=== PATIENT | female | born 1945 | race American Indian/Alaskan Native ===

== ENCOUNTER 2018-07-10 08:24 | Outpatient (CLI) | payer MEDICARE ==
--- NOTE | 2018-07-10 12:49 | Mammography Report ---
BILATERAL DIGITAL SCREENING MAMMOGRAM WITH CAD: 07/10/18 08:24:00 CLINICAL: Routine screening.Breast cancer survivor status post right partial mastectomy with radiation therapy in [id number]. Status post left reduction mammoplasty. COMPARISON:04/05/11 and 05/18/11 mammograms. More recent [facility] mammograms are not available. FINDINGS: The breasts are mostly fatty with a few bilateral scattered fibroglandular densities. Minimal right postsurgical scar. A right upper outer biopsy clip. No mass, suspicious architectural distortion or suspicious calcifications. IMPRESSION: No mammographic evidence of malignancy. BI-RADS CATEGORY: 2 -- Benign RECOMMENDATION: Routine mammographic screening in one year. We will attempt to obtain [facility] mammograms or comparison. COMMENT: Patient follow-up letters are generated via our [employer] application.
== END 2018-07-10 08:25 | disposition home or self-care (01) ==
LOC: MAMMO 08:24
PROVIDERS: ATTEND Internal Medicine
DX: Z12.31 Encounter for screening mammogram for malignant neoplasm of breast (principal)
CPT/HCPCS: 77067

== ENCOUNTER 2019-07-26 12:00 | Emergency (ER) | payer SELFPAY ==
--- NOTE | 2019-07-26 12:11 | Event Note ---
ED Screening Note Date of service: 07/26/19 Time: 12:07 ED Screening Note: Nausea and vomiting started last week. Pain to left lower back. Pain 07/10. Took bengay. No abdominal or fever or chills. No urinary symptoms. Reports some shortness of breath on exertion VSS, Afeb This initial assessment/diagnostic orders/clinical plan/treatment(s) is/are subject to change based on patients health status, clinical progression and re- assessment by fellow clinical providers in the ED. Further treatment and workup at subsequent clinical providers discretion. Patient/guardian urged not to elope from the ED as their condition may be serious if not clinically assessed and managed. Initial orders include: labs inc urine, EKG,CXR
[2019-07-26] MEDS ORDERED: SODIUM CHLORIDE 0.9% 1000 ML 1,000 ML IV ONE (12:42)
[2019-07-26] MEDS ORDERED: KETOROLAC 30 MG/1 ML INJ IV ONE (12:43)
--- NOTE | 2019-07-26 12:48 | Emergency Department Report ---
ED General Adult HPI - General Chief complaint: Dyspnea/Respdistress Stated complaint: SHORT OF BREATH Time Seen by Provider: 07/26/19 12:03 Source: patient, family Mode of arrival: Wheelchair Limitations: No Limitations - History of Present Illness Initial comments: This is a very pleasant 73-year-old lady who presents with recurrent left flank pain. The pain does appear to be in the upper aspect of the left flank. It began 2 weeks ago. It resolved and then recurred yesterday. Since yesterday it has been somewhat constant. It does seem to change with a deep inspiration but there really is no associated shortness of breath nor cough. The pain does appear to be in the flank and not the posterior chest. Does not radiate. There is associated nausea. Patient does state she has a history of kidney stones. She states that she "hurt all over" with kidney stones otherwise she does not recall how the prior episodes of renal colic were like. She denies fever or chills. She denies any other intercurrent symptoms. -: Gradual, week(s) Location: back, left (flank) Quality: aching Consistency: constant Improves with: none Worsens with: none Associated Symptoms: denies other symptoms, nausea/vomiting Treatments Prior to Arrival: none - Related Data Previous Rx's Medication Instructions Recorded Last Taken Type HYDROcodone/APAP 5-325 [[place] 1 each PO Q6HR PRN #7 tablet 07/26/19 Unknown Rx 5/325] Allergies Allergy/AdvReac Type Severity Reaction Status Date / Time No Known Allergies Allergy Verified 07/26/19 12:09 ED Review of Systems ROS: Stated complaint: SHORT OF BREATH Other details as noted in HPI Constitutional: denies: chills, fever Eyes: denies: eye pain, eye discharge, vision change ENT: denies: ear pain, throat pain Respiratory: denies: cough, shortness of breath, wheezing Cardiovascular: denies: chest pain, palpitations Endocrine: no symptoms reported Gastrointestinal: denies: abdominal pain, nausea, vomiting, diarrhea Genitourinary: denies: urgency, dysuria, discharge Musculoskeletal: denies: back pain, joint swelling, arthralgia Skin: denies: rash, lesions Neurological: denies: headache, weakness, paresthesias Psychiatric: denies: anxiety, depression Hematological/Lymphatic: denies: easy bleeding, easy bruising ED Past Medical Hx - Past Medical History Previous Medical History?: Yes Hx Kidney Stones: Yes - Social History Smoking Status: Never Smoker Substance Use Type: None - Medications Home Medications: Home Medications Medication Instructions Recorded Confirmed Last Taken Type HYDROcodone/APAP 5-325 [[place] 1 each PO Q6HR PRN #7 tablet 07/26/19 Unknown Rx 5/325] ED Physical Exam - General Limitations: No Limitations General appearance: alert, in no apparent distress - Head Head exam: Present: atraumatic, normocephalic - Eye Eye exam: Present: normal appearance. Absent: scleral icterus - ENT ENT exam: Present: mucous membranes moist - Neck Neck exam: Present: normal inspection. Absent: tenderness, meningismus - Respiratory Respiratory exam: Present: normal lung sounds bilaterally. Absent: respiratory distress - Cardiovascular Cardiovascular Exam: Present: regular rate, normal rhythm. Absent: systolic murmur, diastolic murmur, rubs, gallop - GI/Abdominal GI/Abdominal exam: Present: soft, normal bowel sounds. Absent: distended, tenderness, guarding, rebound, rigid - Extremities Exam Extremities exam: Present: normal inspection - Back Exam Back exam: Present: normal inspection, CVA tenderness (L). Absent: CVA tenderness (R), muscle spasm, paraspinal tenderness, vertebral tenderness - Neurological Exam Neurological exam: Present: alert, oriented X3, CN II-XII intact. Absent: motor sensory deficit - Psychiatric Psychiatric exam: Present: normal affect, normal mood - Skin Skin exam: Present: warm, dry, intact, normal color. Absent: rash ED Course Vital Signs 07/26/19 07/26/19 07/26/19 12:06 12:37 12:38 Temperature 98.1 F Pulse Rate 101 H Respiratory 18 24 Rate Blood Pressure 136/76 Blood Pressure 135/71 [Left] O2 Sat by Pulse 96 100 Oximetry ED Medical Decision Making - Lab Data Result diagrams: 07/26/19 12:48 07/26/19 12:48 Laboratory Results - last 24 hr 07/26/19 07/26/19 07/26/19 12:48 12:48 12:48 WBC 8.8 RBC 4.34 Hgb 12.8 Hct 38.4 MCV 88 MCH 29 MCHC 33 RDW 15.6 H Plt Count 243 Lymph % (Auto) 21.0 [place] % (Auto) 12.7 H Eos % (Auto) 0.4 Baso % (Auto) 1.0 Lymph # 1.8 [place] # 1.1 H Eos # 0.0 Baso # 0.1 Seg Neutrophils % 64.9 Seg Neutrophils # 5.7 PT 13.2 INR 1.01 APTT 26.0 Sodium Potassium Chloride Carbon Dioxide Anion Gap BUN Creatinine Estimated GFR BUN/Creatinine Ratio Glucose Calcium Total Bilirubin Direct Bilirubin Indirect Bilirubin AST ALT Alkaline Phosphatase Troponin T < 0.010 Total Protein Albumin Albumin/Globulin Ratio 07/26/19 12:48 WBC RBC Hgb Hct MCV MCH MCHC RDW Plt Count Lymph % (Auto) [place] % (Auto) Eos % (Auto) Baso % (Auto) Lymph # [place] # Eos # Baso # Seg Neutrophils % Seg Neutrophils # PT INR APTT Sodium 141 Potassium 3.7 Chloride 102.9 Carbon Dioxide 23 Anion Gap 19 BUN 18 H Creatinine 1.5 H Estimated GFR 41 BUN/Creatinine Ratio 12 Glucose 104 H Calcium 9.4 Total Bilirubin 0.70 Direct Bilirubin < 0.2 Indirect Bilirubin 0.5 AST 19 ALT 15 Alkaline Phosphatase 91 Troponin T Total Protein 7.1 Albumin 4.1 Albumin/Globulin Ratio 1.4 Laboratory Results - last 24 hr 07/26/19 07/26/19 07/26/19 12:48 12:48 12:48 WBC 8.8 RBC 4.34 Hgb 12.8 Hct 38.4 MCV 88 MCH 29 MCHC 33 RDW 15.6 H Plt Count 243 Lymph % (Auto) 21.0 [place] % (Auto) 12.7 H Eos % (Auto) 0.4 Baso % (Auto) 1.0 Lymph # 1.8 [place] # 1.1 H Eos # 0.0 Baso # 0.1 Seg Neutrophils % 64.9 Seg Neutrophils # 5.7 PT 13.2 INR 1.01 APTT 26.0 Sodium Potassium Chloride Carbon Dioxide Anion Gap BUN Creatinine Estimated GFR BUN/Creatinine Ratio Glucose Calcium Total Bilirubin Direct Bilirubin Indirect Bilirubin AST ALT Alkaline Phosphatase Troponin T < 0.010 Total Protein Albumin Albumin/Globulin Ratio 07/26/19 12:48 WBC RBC Hgb Hct MCV MCH MCHC RDW Plt Count Lymph % (Auto) [place] % (Auto) Eos % (Auto) Baso % (Auto) Lymph # [place] # Eos # Baso # Seg Neutrophils % Seg Neutrophils # PT INR APTT Sodium 141 Potassium 3.7 Chloride 102.9 Carbon Dioxide 23 Anion Gap 19 BUN 18 H Creatinine 1.5 H Estimated GFR 41 BUN/Creatinine Ratio 12 Glucose 104 H Calcium 9.4 Total Bilirubin 0.70 Direct Bilirubin < 0.2 Indirect Bilirubin 0.5 AST 19 ALT 15 Alkaline Phosphatase 91 Troponin T Total Protein 7.1 Albumin 4.1 Albumin/Globulin Ratio 1.4 Laboratory Results - last 24 hr 07/26/19 07/26/19 07/26/19 12:48 12:48 12:48 WBC 8.8 RBC 4.34 Hgb 12.8 Hct 38.4 MCV 88 MCH 29 MCHC 33 RDW 15.6 H Plt Count 243 Lymph % (Auto) 21.0 [place] % (Auto) 12.7 H Eos % (Auto) 0.4 Baso % (Auto) 1.0 Lymph # 1.8 [place] # 1.1 H Eos # 0.0 Baso # 0.1 Seg Neutrophils % 64.9 Seg Neutrophils # 5.7 PT 13.2 INR 1.01 APTT 26.0 Sodium Potassium Chloride Carbon Dioxide Anion Gap BUN Creatinine Estimated GFR BUN/Creatinine Ratio Glucose Calcium Total Bilirubin Direct Bilirubin Indirect Bilirubin AST ALT Alkaline Phosphatase Troponin T < 0.010 Total Protein Albumin Albumin/Globulin Ratio 07/26/19 12:48 WBC RBC Hgb Hct MCV MCH MCHC RDW Plt Count Lymph % (Auto) [place] % (Auto) Eos % (Auto) Baso % (Auto) Lymph # [place] # Eos # Baso # Seg Neutrophils % Seg Neutrophils # PT INR APTT Sodium 141 Potassium 3.7 Chloride 102.9 Carbon Dioxide 23 Anion Gap 19 BUN 18 H Creatinine 1.5 H Estimated GFR 41 BUN/Creatinine Ratio 12 Glucose 104 H Calcium 9.4 Total Bilirubin 0.70 Direct Bilirubin < 0.2 Indirect Bilirubin 0.5 AST 19 ALT 15 Alkaline Phosphatase 91 Troponin T Total Protein 7.1 Albumin 4.1 Albumin/Globulin Ratio 1.4 Laboratory Results - last 24 hr 07/26/19 07/26/19 07/26/19 12:48 12:48 12:48 WBC 8.8 RBC 4.34 Hgb 12.8 Hct 38.4 MCV 88 MCH 29 MCHC 33 RDW 15.6 H Plt Count 243 Lymph % (Auto) 21.0 [place] % (Auto) 12.7 H Eos % (Auto) 0.4 Baso % (Auto) 1.0 Lymph # 1.8 [place] # 1.1 H Eos # 0.0 Baso # 0.1 Seg Neutrophils % 64.9 Seg Neutrophils # 5.7 PT 13.2 INR 1.01 APTT 26.0 Sodium Potassium Chloride Carbon Dioxide Anion Gap BUN Creatinine Estimated GFR BUN/Creatinine Ratio Glucose Calcium Total Bilirubin Direct Bilirubin Indirect Bilirubin AST ALT Alkaline Phosphatase Troponin T < 0.010 Total Protein Albumin Albumin/Globulin Ratio Urine Color Urine Turbidity Urine pH Ur Specific [place] Urine Protein Urine Glucose (UA) Urine Ketones Urine Blood Urine Nitrite Urine Bilirubin Urine Urobilinogen Ur Leukocyte Esterase Urine WBC (Auto) Urine RBC (Auto) U Epithel Cells (Auto) Urine Mucus 07/26/19 07/26/19 12:48 13:34 WBC RBC Hgb Hct MCV MCH MCHC RDW Plt Count Lymph % (Auto) [place] % (Auto) Eos % (Auto) Baso % (Auto) Lymph # [place] # Eos # Baso # Seg Neutrophils % Seg Neutrophils # PT INR APTT Sodium 141 Potassium 3.7 Chloride 102.9 Carbon Dioxide 23 Anion Gap 19 BUN 18 H Creatinine 1.5 H Estimated GFR 41 BUN/Creatinine Ratio 12 Glucose 104 H Calcium 9.4 Total Bilirubin 0.70 Direct Bilirubin < 0.2 Indirect Bilirubin 0.5 AST 19 ALT 15 Alkaline Phosphatase 91 Troponin T Total Protein 7.1 Albumin 4.1 Albumin/Globulin Ratio 1.4 Urine Color Yellow Urine Turbidity Clear Urine pH 6.0 Ur Specific [place] 1.015 Urine Protein <15 mg/dl Urine Glucose (UA) Neg Urine Ketones 20 Urine Blood Sm Urine Nitrite Neg Urine Bilirubin Neg Urine Urobilinogen < 2.0 Ur Leukocyte Esterase Neg Urine WBC (Auto) 2.0 Urine RBC (Auto) 2.0 U Epithel Cells (Auto) < 1.0 Urine Mucus Few - Radiology Data Radiology results: report reviewed, image reviewed IMPRESSION: 1. 6 mm left UVJ stone with moderate left-sided hydronephrosis. 2. Additional bilateral nonobstructive nephrolithiasis. 3. Additional incidental findings as above. Critical care attestation.: If time is entered above; I have spent that time in minutes in the direct care of this critically ill patient, excluding procedure time. ED Disposition Clinical Impression: Renal colic on left side, Obstructive uropathy, Bilateral nephrolithiasis, C hronic renal insufficiency, stage I Disposition: TO HOME OR SELFCARE Is pt being admited?: No Does the pt Need Aspirin: No Condition: Stable Instructions: Kidney Stones (ED) Additional Instructions: Further care and evaluation with a urologist (kidney stones specialist) is recommended. Return as needed any acute pain fever chills vomiting. Prescriptions: HYDROcodone/APAP 5-325 [[place] 5/325] 1 each PO Q6HR PRN #7 tablet PRN Reason: Pain Referrals: [facility] [Provider Group] - 3-5 Days Time of Disposition: 14:19
--- NOTE | 2019-07-26 12:48 | XRay Report ---
CHEST 1 VIEW INDICATION: Dyspnea. COMPARISON: None FINDINGS: Support devices: None. Heart: Within normal limits. Lungs/Pleura: No acute air space or interstitial disease. Additional findings: None. IMPRESSION: 1. No acute findings. Signer Name: Gustabo Hernandes MD Signed: 07/26/2019 12:43 PM Workstation Name: [id number]
[2019-07-26 13:04] LABS: Basophils # (Auto) 0.1 K/mm3 (0.0-0.1); Eosinophils % (Auto) 0.4 % (0.0-4.3); Hematocrit 38.4 % (30.3-42.9); Hemoglobin 12.8 gm/dl (10.1-14.3); Lymphocytes # (Auto) 1.8 K/mm3 (1.2-5.4); Mean Corpuscular HGB Conc 33 % (30-34); Mean Corpuscular Volume 88 fl (79-97); Monocytes # (Auto) 1.1 K/mm3 (0.0-0.8); Monocytes % (Auto) 12.7 % (0.0-7.3); Platelet Count 243 K/mm3 (140-440); Red Blood Count 4.34 M/mm3 (3.65-5.03); Red Cell Distribution Width 15.6 % (13.2-15.2)
[2019-07-26 13:15] LABS: INR 1.01 (0.87-1.13)
[2019-07-26 13:39] LABS: Alanine Aminotransferase 15 units/L (7-56); Albumin 4.1 g/dL (3.9-5); BUN/Creatinine Ratio 12; Blood Urea Nitrogen 18 mg/dL (7-17); Calcium 9.4 mg/dL (8.4-10.2); Hemolysis Index 5
[2019-07-26 13:41] LABS: Bilirubin,Direct < 0.2 mg/dL (0-0.2)
--- NOTE | 2019-07-26 14:08 | Cat Scan Report ---
CT ABDOMEN AND PELVIS WITHOUT CONTRAST HISTORY: l flank pain. COMPARISON: None. TECHNIQUE: CT images of the abdomen and pelvis were obtained without administration of intravenous co ntrast. All CT scans at this location are performed using CT dose reduction for ALARA by means of au tomated exposure control. FINDINGS: Lungs/bones: The lung bases are clear. There are degenerative changes in the spine and pelvis with n o acute osseous abnormality. Abdomen/pelvis: There is a 6 mm stone near the left UVJ with moderate left-sided hydronephrosis. Add itional nonobstructive calyceal calculi are seen in the lower poles of each kidney largest on the rig ht measuring 8 mm. There is also a simple cyst arising from the mid to lower pole the right kidney. The gallbladder surgically absent. The liver, spleen, pancreas, adrenals, and proximal GI tract appea r unremarkable except for a small hiatal hernia. Urinary bladder is unremarkable. Uterus is surgically absent. No pelvic free fluid. There is severe c olonic diverticulosis with no acute inflammatory change identified. The appendix and terminal ileum a ppear normal. IMPRESSION: 1. 6 mm left UVJ stone with moderate left-sided hydronephrosis. 2. Additional bilateral nonobstructive nephrolithiasis. 3. Additional incidental findings as above. Signer Name: Gustabo Hernandes MD Signed: 07/26/2019 2:04 PM Workstation Name: [id number]
[2019-07-26 14:31] LABS: Bilirubin,Urine NEG (Negative); Blood,Urine SM (Negative); Color,Urine Yellow (Yellow); Mucus,Urine FEW /HPF; Protein,Urine <15 mg/dL mg/dL (Negative); Urobilinogen,Urine < 2.0 mg/dL (<2.0)
[2019-07-26 15:10] VITALS: BP 141/71
== END 2019-07-26 15:22 | disposition home or self-care (01) ==
LOC: ED 12:00
DX: N18.1 Chronic kidney disease, stage 1 (principal); N20.0 Calculus of kidney; N13.9 Obstructive and reflux uropathy, unspecified; R11.2 Nausea with vomiting, unspecified
CPT/HCPCS: 36415; 71045; 74176; 80048; 80076; 81001; 84484; 85025; 85610; 85730; 93005; 93010; 96361; 96374; 99284; J1885; J7030

== ENCOUNTER 2019-08-14 06:12 | Observation (INO) | payer MEDICARE ==
[2019-08-14 07:08] LABS: Basophils # (Auto) 0.1 K/mm3 (0.0-0.1); Basophils % (Auto) 1.6 % (0.0-1.8); Eosinophils # (Auto) 0.1 K/mm3 (0.0-0.4); Hematocrit 40.3 % (30.3-42.9); Hemoglobin 13.3 gm/dl (10.1-14.3); Lymphocytes # (Auto) 2.4 K/mm3 (1.2-5.4); Mean Corpuscular HGB Conc 33 % (30-34); Mean Corpuscular Volume 89 fl (79-97); Monocytes # (Auto) 0.5 K/mm3 (0.0-0.8); Monocytes % (Auto) 9.9 % (0.0-7.3); Platelet Count 350 K/mm3 (140-440); Red Blood Count 4.55 M/mm3 (3.65-5.03)
[2019-08-14 07:20] LABS: BUN/Creatinine Ratio 16; Blood Urea Nitrogen 11 mg/dL (7-17); Calcium 9.6 mg/dL (8.4-10.2); Hemolysis Index 7
[2019-08-14] MEDS ORDERED: SODIUM CHLORIDE 0.9% 500 ML 500 ML IV ONE (07:30)
[2019-08-14] MEDS ORDERED: ONDANSETRON 4 MG/2 ML INJ IV ONE (07:30)
[2019-08-14] MEDS ORDERED: KETOROLAC 30 MG/1 ML INJ IV ONE (07:30)
[2019-08-14] MEDS ORDERED: HYDROmorphone 1 MG/1 ML INJ IV ONE (07:30)
[2019-08-14] MEDS ORDERED: POTASSIUM CHLORIDE ER 20 MEQ TAB PO ONE (07:30)
--- NOTE | 2019-08-14 07:40 | Emergency Department Report ---
ED Abdominal Pain HPI - General Chief Complaint: Abdominal Pain Stated Complaint: ABD PAIN Time Seen by Provider: 08/14/19 06:55 Source: patient Mode of arrival: Ambulatory Limitations: No Limitations - History of Present Illness Initial Comments: 73-year-old female with a past medical history of breast cancer currently in remission, hypertension, and previous hysterectomy presents to the hospital complaining of left lower quadrant abdominal pain and left flank pain 3 weeks. Patient was seen here on July 26 for the same pain and was diagnosed with left 6mm UVJ Stone with moderate hydronephrosis. Patient also had bilateral nephrolithiasis. Patient was discharged on hydrocodone 7 tablets. She follow- up with Dr. Godinez was used and was prescribed a 10 day supply of Flomax on August 04. Patient has taken the medication as prescribed and continues to have pain that is intermittent and currently rated 10/10 in intensity. No aggravating or alleviating factors reported. Positive nausea without vomiting, dysuria, hematuria or fever reported. Dr Godinez wanted to schedule procedural intervention however, her insurance did not approve the procedure. She was informed to return to ER due to continued pain. - Related Data Previous Rx's Medication Instructions Recorded Last Taken Type HYDROcodone/APAP 5-325 [[place] 1 each PO Q6HR PRN #7 tablet 07/26/19 Unknown Rx 5/325] Allergies Allergy/AdvReac Type Severity Reaction Status Date / Time No Known Allergies Allergy Verified 07/26/19 12:09 ED Review of Systems ROS: Stated complaint: ABD PAIN Other details as noted in HPI Comment: All other systems reviewed and negative ED Past Medical Hx - Past Medical History Previous Medical History?: Yes Hx Hypertension: Yes Hx of Cancer: Yes (Breast) Hx Kidney Stones: Yes - Surgical History Past Surgical History?: Yes Additional Surgical History: breast. Hysterectomy - Social History Smoking Status: Former Smoker Substance Use Type: None - Medications Home Medications: Home Medications Medication Instructions Recorded Confirmed Last Taken Type HYDROcodone/APAP 5-325 [[place] 1 each PO Q6HR PRN #7 tablet 07/26/19 Unknown Rx 5/325] ED Physical Exam - General Limitations: No Limitations - Other Other exam information: General: No acute distress Head: Atraumatic Eyes: normal appearance ENT: Moist mucous membranes Neck: Normal appearance, no midline tenderness Chest: Clear to auscultation bilaterally CV: Regular rate and rhythm Abdomen: Soft, normal bowel sounds, mild left lower quadrant tenderness, nondistended, no rebound or guarding Back: Normal inspection, mild left flank pain on palpation Extremity: Normal inspection infection, full range of motion Neuro: Alert O x 3, no facial asymmetry, speech clear, no gross motor sensory d eficit Psych: Appropriate behavior Skin: No rash ED Course Vital Signs 08/14/19 08/14/19 08/14/19 06:23 08:25 08:26 Temperature 98.3 F Pulse Rate 115 H Respiratory 20 20 20 Rate Blood Pressure 150/84 O2 Sat by Pulse 97 Oximetry - Consultations Consultation #1: 08/14/19 08:35 case d/w Dr Godinez, urology, will plan to place stent today if OR available. ED Medical Decision Making - Lab Data Result diagrams: 08/14/19 06:55 08/14/19 06:55 Lab Results 08/14/19 08/14/19 Range/Units 06:55 06:55 WBC 4.7 (4.5-11.0) K/mm3 RBC 4.55 (3.65-5.03) M/mm3 Hgb 13.3 (10.1-14.3) gm/dl Hct 40.3 (30.3-42.9) % MCV 89 (79-97) fl MCH 29 (28-32) pg MCHC 33 (30-34) % RDW 16.0 H (13.2-15.2) % Plt Count 350 (140-440) K/mm3 Lymph % (Auto) 50.0 H (13.4-35.0) % [place] % (Auto) 9.9 H (0.0-7.3) % Eos % (Auto) 2.0 (0.0-4.3) % Baso % (Auto) 1.6 (0.0-1.8) % Lymph # 2.4 (1.2-5.4) K/mm3 [place] # 0.5 (0.0-0.8) K/mm3 Eos # 0.1 (0.0-0.4) K/mm3 Baso # 0.1 (0.0-0.1) K/mm3 Seg Neutrophils % 36.5 L (40.0-70.0) % Seg Neutrophils # 1.7 L (1.8-7.7) K/mm3 Sodium 143 (137-145) mmol/L Potassium 3.3 L (3.6-5.0) mmol/L Chloride 105.1 (98-107) mmol/L Carbon Dioxide 25 (22-30) mmol/L Anion Gap 16 mmol/L BUN 11 (7-17) mg/dL Creatinine 0.7 (0.7-1.2) mg/dL Estimated GFR > 60 ml/min BUN/Creatinine Ratio 16 % Glucose 106 H (65-100) mg/dL Calcium 9.6 (8.4-10.2) mg/dL - Radiology Data Radiology results: report reviewed CT abdomen pelvis wo con INDICATION / CLINICAL INFORMATION: abd pain recent L sided kidney stone. TECHNIQUE: Axial CT imaging of abdomen and pelvis was obtained without contrast. Coronal and sagittal reformatted imaging obtained and reviewed. All CT scans at this location are performed using CT dose reduction for ALARA by means of automated exposure control. COMPARISON: 07/26/2019 CT FINDINGS: The previously noted 6 mm calculus in the distal left ureter appears to have passed. However there is a new calculus in the proximal left ureter at the UPJ, measuring 7 x 3 mm. There is mild hydronephrosis. The degree of hydronephrosis has significantly improved compared with the last CT scan and passage of the more distal ureteral calculus. There remains a single stone in the inferior calyx of the left kidney. Multiple calculi are again noted in the lower pole calyx of the right kidney. Bilateral renal cysts are noted. Liver, spleen, pancreas, and adrenal glands appear grossly unremarkable. Cholecystectomy. CT pelvis demonstrates normal appearance of the appendix. There is marked sigmoid diverticulosis without evidence of diverticulitis. No pelvic mass or free fluid is noted. Visualized lung bases are clear. No significant osseous abnormality other than mild degenerative change. IMPRESSION: 1. Previously noted 6 mm calculus in the distal left ureter is no longer present and presumably has been passed. 2. One of the previously seen left intrarenal calculi has now moved into the proximal left ureter and is causing mild hydronephrosis. This calculus measures 7 x 3 mm. Overall, the degree of hydronephrosis has significantly improved compared with the last CT of 07/26/2019. 3. Bilateral nephrolithiasis. 4. Marked sigmoid diverticulosis. - Medical Decision Making renal colic with continued pain and proximal obstruction case d/w urology plan to admit for intervention hospitalist informed - Differential Diagnosis renal colic, UTI, diverticulitis Critical Care Time: No Critical care attestation.: If time is entered above; I have spent that time in minutes in the direct care of this critically ill patient, excluding procedure time. ED Disposition Clinical Impression: Renal colic on left side, Ureteral stone with hydronephrosis Disposition: OP ADMIT IP TO THIS HOSP Is pt being admited?: Yes Condition: Stable Time of Disposition: 08:44 (Dr thompson/hospitalist)
--- NOTE | 2019-08-14 07:44 | Cat Scan Report ---
CT abdomen pelvis wo con INDICATION / CLINICAL INFORMATION: abd pain recent L sided kidney stone. TECHNIQUE: Axial CT imaging of abdomen and pelvis was obtained without contrast. Coronal and sagittal reformatte d imaging obtained and reviewed. All CT scans at this location are performed using CT dose reduction for ALARA by means of automated exposure control. COMPARISON: 07/26/2019 CT FINDINGS: The previously noted 6 mm calculus in the distal left ureter appears to have passed. However there is a new calculus in the proximal left ureter at the UPJ, measuring 7 x 3 mm. There is mild hydronephro sis. The degree of hydronephrosis has significantly improved compared with the last CT scan and passa ge of the more distal ureteral calculus. There remains a single stone in the inferior calyx of the le ft kidney. Multiple calculi are again noted in the lower pole calyx of the right kidney. Bilateral re nal cysts are noted. Liver, spleen, pancreas, and adrenal glands appear grossly unremarkable. Cholecystectomy. CT pelvis demonstrates normal appearance of the appendix. There is marked sigmoid diverticulosis with out evidence of diverticulitis. No pelvic mass or free fluid is noted. Visualized lung bases are clear. No significant osseous abnormality other than mild degenerative change. IMPRESSION: 1. Previously noted 6 mm calculus in the distal left ureter is no longer present and presumably has b een passed. 2. One of the previously seen left intrarenal calculi has now moved into the proximal left ureter and is causing mild hydronephrosis. This calculus measures 7 x 3 mm. Overall, the degree of hydronephros is has significantly improved compared with the last CT of 07/26/2019. 3. Bilateral nephrolithiasis. 4. Marked sigmoid diverticulosis. Signer Name: Beverly Gonzales MD Signed: 08/14/2019 7:40 AM Workstation Name: [id number]
[2019-08-14 09:44] LABS: Bilirubin,Urine NEG (Negative); Blood,Urine NEG (Negative); Color,Urine Yellow (Yellow); Mucus,Urine FEW /HPF; Protein,Urine <15 mg/dL mg/dL (Negative); Urobilinogen,Urine < 2.0 mg/dL (<2.0)
[2019-08-14] MEDS ORDERED: ONDANSETRON 4 MG/2 ML INJ IV PRN (10:02)
[2019-08-14] MEDS ORDERED: ALBUTEROL 2.5 MG/3 ML NEBU IH PRN (10:02)
[2019-08-14] MEDS ORDERED: NALOXONE 0.4 MG/1 ML INJ IV PRN (10:02)
[2019-08-14] MEDS ORDERED: ACETAMINOPHEN 325 MG TAB PO PRN (10:02)
--- NOTE | 2019-08-14 10:02 | History and Physical Report ---
History of Present Illness Date of examination: 08/14/19 Date of admission: 08/14/19 08:46 Medications and Allergies Allergies Allergy/AdvReac Type Severity Reaction Status Date / Time No Known Allergies Allergy Verified 07/26/19 12:09 Home Medications Medication Instructions Recorded Confirmed Last Taken Type amLODIPine [Norvasc] 10 mg PO DAILY 08/14/19 08/14/19 08/13/19 History Exam - Constitutional Vitals: Temp Pulse Resp BP Pulse Ox 98.1 F 81 16 134/63 99 08/14/19 07:45 08/14/19 07:45 08/14/19 08:56 08/14/19 07:45 08/14/19 07:45 Results - Labs CBC & Chem 7: 08/14/19 06:55 08/14/19 06:55 Labs: Laboratory Last Values WBC 4.7 K/mm3 (4.5-11.0) 08/14/19 06:55 RBC 4.55 M/mm3 (3.65-5.03) 08/14/19 06:55 Hgb 13.3 gm/dl (10.1-14.3) 08/14/19 06:55 Hct 40.3 % (30.3-42.9) 08/14/19 06:55 MCV 89 fl (79-97) 08/14/19 06:55 MCH 29 pg (28-32) 08/14/19 06:55 MCHC 33 % (30-34) 08/14/19 06:55 RDW 16.0 % (13.2-15.2) H 08/14/19 06:55 Plt Count 350 K/mm3 (140-440) 08/14/19 06:55 Lymph % (Auto) 50.0 % (13.4-35.0) H 08/14/19 06:55 [place] % (Auto) 9.9 % (0.0-7.3) H 08/14/19 06:55 Eos % (Auto) 2.0 % (0.0-4.3) 08/14/19 06:55 Baso % (Auto) 1.6 % (0.0-1.8) 08/14/19 06:55 Lymph # 2.4 K/mm3 (1.2-5.4) 08/14/19 06:55 [place] # 0.5 K/mm3 (0.0-0.8) 08/14/19 06:55 Eos # 0.1 K/mm3 (0.0-0.4) 08/14/19 06:55 Baso # 0.1 K/mm3 (0.0-0.1) 08/14/19 06:55 Seg Neutrophils % 36.5 % (40.0-70.0) L 08/14/19 06:55 Seg Neutrophils # 1.7 K/mm3 (1.8-7.7) L 08/14/19 06:55 Sodium 143 mmol/L (137-145) 08/14/19 06:55 Potassium 3.3 mmol/L (3.6-5.0) L 08/14/19 06:55 Chloride 105.1 mmol/L (98-107) 08/14/19 06:55 Carbon Dioxide 25 mmol/L (22-30) 08/14/19 06:55 Anion Gap 16 mmol/L 08/14/19 06:55 BUN 11 mg/dL (7-17) 08/14/19 06:55 Creatinine 0.7 mg/dL (0.7-1.2) 08/14/19 06:55 Estimated GFR > 60 ml/min 08/14/19 06:55 BUN/Creatinine Ratio 16 % 08/14/19 06:55 Glucose 106 mg/dL (65-100) H 08/14/19 06:55 Calcium 9.6 mg/dL (8.4-10.2) 08/14/19 06:55 Urine Color Yellow (Yellow) 08/14/19 09:33 Urine Turbidity Clear (Clear) 08/14/19 09:33 Urine pH 6.0 (5.0-7.0) 08/14/19 09:33 Ur Specific [place] 1.016 (1.003-1.030) 08/14/19 09:33 Urine Protein <15 mg/dl mg/dL (Negative) 08/14/19 09:33 Urine Glucose (UA) Neg mg/dL (Negative) 08/14/19 09:33 Urine Ketones Tr mg/dL (Negative) 08/14/19 09:33 Urine Blood Neg (Negative) 08/14/19 09:33 Urine Nitrite Neg (Negative) 08/14/19 09:33 Urine Bilirubin Neg (Negative) 08/14/19 09:33 Urine Urobilinogen < 2.0 mg/dL (<2.0) 08/14/19 09:33 Ur Leukocyte Esterase Neg (Negative) 08/14/19 09:33 Urine WBC (Auto) 2.0 /HPF (0.0-6.0) 08/14/19 09:33 Urine RBC (Auto) 1.0 /HPF (0.0-6.0) 08/14/19 09:33 U Epithel Cells (Auto) 1.0 /HPF (0-13.0) 08/14/19 09:33 Urine Mucus Few /HPF 08/14/19 09:33
--- NOTE | 2019-08-14 10:18 | Anesthesia Consultation ---
Anesthesia Consult and Med Hx Date of service: 08/14/19 - Airway Anesthetic Teeth Evaluation: Poor, Chipped (multiple chipped and broken teeth including top incisors) ROM Head & Neck: Adequate Mental/Hyoid Distance: Inadequate Mallampati Class: Class III Intubation Access Assessment: Possibly Difficult - Pulmonary Exam CTA: Yes - Cardiac Exam Cardiac Exam: RRR - Pre-Operative Health Status ASA Pre-Surgery Classification: ASA3 Proposed Anesthetic Plan: General - Pulmonary Hx Smoking: No Hx Respiratory Symptoms: No - Cardiovascular System Hx Hypertension: Yes Hx Heart Attack/AMI: No Hx Percutaneous Transluminal Coronary Angioplasty (PTCA): No - Central Nervous System Hx Neuromuscular Disorder: No (tremor noted which patient attributes to nerves) CVA: No - Gastrointestinal Hx Gastroesophageal Reflux Disease: No - Endocrine Hx Renal Disease: Yes (hydronephrosis, nephrolithiasis; normal renal function) Hx Liver Disease: No Hx Insulin Dependent Diabetes: No Hx Non-Insulin Dependent Diabetes: No Hx Thyroid Disease: No - Hematic Hx Anemia: No - Other Systems Hx Obesity: Yes - Additional Comments Anesthesia Medical History Comments: No hx anesthetic complications. Mild nausea today. Last episode vomiting 2 days ago.
[2019-08-14] MEDS ORDERED: FAMOTIDINE 20 MG/2 ML INJ IV ONE (10:19)
--- NOTE | 2019-08-14 10:19 | Anesthesia Day of Surgery ---
Anesthesia Day of Surgery - Day of Surgery Patient Examined: Yes Patient H&P Reviewed: Yes Patient is NPO: Yes
[2019-08-14] MEDS ORDERED: LIDOCAINE MPF (2%) 20 MG/1 ML VIAL 5 ML ONE (10:52)
[2019-08-14] MEDS ORDERED: PROPOFOL 200 MG/20 ML VIAL IV ONE (10:53)
[2019-08-14] MEDS ORDERED: HYDROmorphone 1 MG/1 ML INJ ONE (10:53)
[2019-08-14] MEDS ORDERED: LACTATED RINGERS 1,000 ML IV SCH (11:00)
[2019-08-14] MEDS ORDERED: ONDANSETRON 4 MG/2 ML INJ IV NR (11:00)
[2019-08-14] MEDS ORDERED: ceFAZolin/STERILE WATER 2 GM/20 ML SYRINGE IV NR (12:10)
[2019-08-14] MEDS ORDERED: WATER FOR IRRIG STERILE 2000 ML IR ONE (12:52)
[2019-08-14] MEDS ORDERED: ONDANSETRON 4 MG/2 ML INJ ONE (13:09)
[2019-08-14] MEDS: fentaNYL 100 MCG/2 ML INJ IV PRN ×2 (13:35→13:50)
--- NOTE | 2019-08-14 14:19 | History and Physical Report ---
History of Present Illness Date of admission: 08/14/19 08:46 Chief complaint: My side hurts History of present illness: 73 YO Female with HTN, BrCA, Nephrolithiasis, Obesity presents to ED for evaluation. Pt states that she has experienced pain in her left flank over the past 3 weeks. Pt reports that the pain was initially intermittent, but has become progressively more frequent over the past 1 week. Patient was seen and evaluated in ED on July 26 and discharged home with outpatient management. Patient reports worsening symptoms with outpatient management. Pt seen and evaluated by her Urologist and found to have failed outpatient therapy. Pt instructed to seek further care at [facility]. Pt seen and evaluated in ED and found to have Urinary Obstruction with Hydronephrosis. Urology consulted in ED. Pt admitted to RUBIN unit. Pt pending surgical intervention as per Urology team. PT a cknowledges Left flank pain. Pain is 10/10, constant. Pain is associated with nausea, and inability to tolerate oral diet. No prior admission for review. All listed medication reconciled at time of admission. Past History Past Surgical History: hysterectomy, Other (Breast surgery) Social history: . denies: smoking, alcohol abuse, prescription drug abuse Family history: hypertension Medications and Allergies Allergies Allergy/AdvReac Type Severity Reaction Status Date / Time No Known Allergies Allergy Verified 07/26/19 12:09 Home Medications Medication Instructions Recorded Confirmed Last Taken Type amLODIPine [Norvasc] 10 mg PO DAILY 08/14/19 08/14/19 08/13/19 History Active Meds: Active Medications Acetaminophen (Tylenol) 650 mg PO Q4H PRN PRN Reason: Pain MILD(1-3)/Fever >100.5/MARISCAL Albuterol (Proventil) 2.5 mg IH Q4HRT PRN PRN Reason: Shortness Of Breath Cefazolin Sodium (Ancef/Sterile Water 2 Gm/20 Ml) 2 gm IV PREOP NR Stop: 08/14/19 23:59 Famotidine (Pepcid) 10 mg IV BID NEVIN Fentanyl (Sublimaze) 50 mcg IV Q5MIN PRN PRN Reason: Pain , Severe (7-10) Stop: 08/14/19 23:59 Last Admin: 08/14/19 13:50 Dose: 50 mcg Documented by: Cefepime HCl (Cefepime/Ns 1 Gm/100 Ml) 1 gm in 100 mls @ 200 mls/hr IV Q8HR NEVIN; Protocol Lactated Ringer's (Lactated Ringers) 1,000 mls @ 100 mls/hr IV DIRECT NEVIN Last Admin: 08/14/19 10:50 Dose: 100 mls/hr Documented by: Morphine Sulfate (Morphine) 2 mg IV Q4H PRN PRN Reason: Pain, Moderate (4-6) Naloxone HCl (Naloxone) 0.1 mg IV Q2MIN PRN PRN Reason: Res Rate </= 8 or 02 SAT < 92% Ondansetron HCl (Zofran) 4 mg IV Q8H PRN PRN Reason: Nausea And Vomiting Ondansetron HCl (Zofran) 4 mg IV PREOP NR Stop: 08/14/19 23:59 Last Admin: 08/14/19 10:50 Dose: 4 mg Documented by: Sodium Chloride (Sodium Chloride Flush Syringe 10 Ml) 10 ml IV BID NEVIN Sodium Chloride (Sodium Chloride Flush Syringe 10 Ml) 10 ml IV PRN PRN PRN Reason: LINE FLUSH Review of Systems Constitutional: no weight loss, no weight gain, no fever, no chills Ears, nose, mouth and throat: no ear pain, no ear discharge, no nasal discharge Breasts: no change in shape, no swelling, no mass Cardiovascular: no chest pain, no orthopnea, no rapid/irregular heart beat, no edema, no syncope Gastrointestinal: nausea, no diarrhea, no constipation, no change in bowel habits, no coffee ground emesis Genitourinary Female: flank pain, no pelvic pain, no menorrhagia, no dysuria, no urinary frequency, no urgency Rectal: no pain, no incontinence, no bleeding Musculoskeletal: no neck stiffness, no neck pain, no shooting arm pain, no arm numbness/tingling, no low back pain, no shooting leg pain, no leg numbness/tingling Integumentary: no rash, no pruritis, no redness, no sores, no wounds Neurological: no paralysis, no weakness, no tingling, no seizures, no syncope Psychiatric: no memory loss, no change in sleep habits, no insomnia, no hypersomnia, no change in libido, no suicidal ideation Endocrine: no heat intolerance, no polyphagia, no excessive thirst, no polyuria, no excessive sweating, no flushing Hematologic/Lymphatic: no easy bruising, no easy bleeding, no lymphadenopathy Allergic/Immunologic: no urticaria, no wheezing, no persistent infections, no angioedema Exam - Constitutional Vitals: Temp Pulse Resp BP Pulse Ox 97.5 F L 70 12 132/68 98 08/14/19 13:11 08/14/19 14:00 08/14/19 14:00 08/14/19 14:00 08/14/19 14:00 General appearance: Present: mild distress - EENT Eyes: Present: PERRL ENT: hearing intact, clear oral mucosa - Neck Neck: Present: supple, normal ROM - Respiratory Respiratory effort: normal Respiratory: bilateral: CTA - Cardiovascular Heart Sounds: Present: S1 & S2. Absent: rub, click - Extremities Extremities: pulses symmetrical, No edema Peripheral Pulses: within normal limits - Abdominal General gastrointestinal: Present: soft, non-tender, non-distended, normal bowel sounds Female genitourinary: Present: normal - Integumentary Integumentary: Present: clear, warm, dry - Musculoskeletal Musculoskeletal: gait normal, strength equal bilaterally - Psychiatric Psychiatric: appropriate mood/affect, intact judgment & insight - Neurologic Neurologic: CNII-XII intact, moves all extremities Results - Labs CBC & Chem 7: 08/14/19 06:55 08/14/19 06:55 Labs: Abnormal lab results 08/14/19 08/14/19 Range/Units 06:55 06:55 RDW 16.0 H (13.2-15.2) % Lymph % (Auto) 50.0 H (13.4-35.0) % [place] % (Auto) 9.9 H (0.0-7.3) % Seg Neutrophils % 36.5 L (40.0-70.0) % Seg Neutrophils # 1.7 L (1.8-7.7) K/mm3 Potassium 3.3 L (3.6-5.0) mmol/L Glucose 106 H (65-100) mg/dL Assessment and Plan - Patient Problems (1) Ureteral stone with hydronephrosis Current Visit: Yes Status: Acute Plan to address problem: Urology consulted in ED, surgical intervention as per Urology team, pain control, supportive care. (2) HTN (hypertension) Current Visit: Yes Status: Acute Qualifiers: Hypertension type: essential hypertension Qualified Code(s): I10 - Essential (primary) hypertension Plan to address problem: Monitor bp q shift, continue medical management, pain control (3) Obesity Current Visit: Yes Status: Acute Qualifiers: Body mass index: BMI 33.0-33.9 Plan to address problem: Balanced diet, increased physical activity at discharge. (4) DVT prophylaxis Current Visit: Yes Status: Acute Plan to address problem: SCD to BLE while in bed, Pt ambulatory
--- NOTE | 2019-08-14 14:30 | Post Operative Note ---
Date of procedure: 08/14/19 Pre-op diagnosis: l upper ureteral stone Post-op diagnosis: same Findings: same Procedure: cysto l rpg stent Anesthesia: GETA Surgeon: CRISTI DIAZ Estimated blood loss: none Pathology: none Condition: stable Disposition: PACU
--- NOTE | 2019-08-14 14:31 | Discharge Summary ---
Short Stay Discharge Plan Activity: other (no straining ) Weight Bearing Status: Full Weight Bearing Diet: low fat, low cholesterol, low salt Special Instructions: other (has stent f/u 1-2 weeks ) Durable Medical Equipment Needed Upon Discharge: other (j stent ) Follow up with: DIONE CLOEMAN MD [Primary Care Provider] - 7 Days
--- NOTE | 2019-08-14 15:22 | Post Anesthesia Evaluation ---
- Post Anesthesia Evaluation Patient Participated: Yes Airway Patent: Yes Stable Respiratory Function: Yes Nausea/Vomiting: No Temp > 96.8F: Yes Pain Manageable: Yes Adequeate Hydration: Yes Anesthesia Complications: No
--- NOTE | 2019-08-14 15:22 | Discharge Summary ---
Short Stay Discharge Plan Follow up with: DIONE COLEMAN MD [Primary Care Provider] - 7 Days
--- NOTE | 2019-08-14 15:52 | Operative Report ---
PREOPERATIVE DIAGNOSIS: Severe left flank pain, previous passed distal stone. A second stone 7 mm upper ureter. POSTOPERATIVE DIAGNOSIS: Severe left flank pain, previous passed distal stone. A second stone 7 mm upper ureter. PROCEDURE: Cystoscopy, bilateral retrogrades, left double-J stent. SURGEON: Dr. Deng. ANESTHESIA: General. FINDINGS: This is a woman who presented with left flank pain. She passed a 6 mm distal stone. She now has a stone in the upper ureter with severe pain. DESCRIPTION OF PROCEDURE: The patient was brought to the operating room and placed on the operating table. Following induction of anesthesia, placed in lithotomy position, prepped and draped in usual sterile fashion. Cystourethroscopy showed no bladder lesions. Retrograde showed a stone in the upper ureter, L2-3. A wire coiled past it and the 4.5 double J 24 cm coiled in the kidney and bladder. The patient tolerated the procedure well. PLAN: Will be followup staged lithotripsy or ureteroscopy. She is being discharged in good condition. JOB# [id number] TIANNA/DINORAH
[2019-08-14] MEDS: CEFEPIME/NS 1 GM/100 ML 1 GM/100 ML BAG IV SCH ×2 (16:16→22:21)
--- NOTE | 2019-08-14 16:40 | Fluoroscopy Report ---
INTRAOPERATIVE FLUOROSCOPY: RETROGRADE UROGRAPHY INDICATION: LT URETERAL STONE. TECHNIQUE: Intraoperative spot images were obtained during the procedure. FINDINGS: A 7 mm stone is seen along the proximal left ureter. A subsequently placed left ureteral stent is in good position. There is unremarkable opacification of the renal collecting systems and the distal thi rd of the right ureter. Please see the procedure report for further details. Fluoroscopy Time: 59 seconds. Fluoroscopy Images: 5. Signer Name: Macho Johnson MD Signed: 08/14/2019 4:36 PM Workstation Name: [id number]
[2019-08-14] MEDS: MORPHINE 2 MG/1 ML INJ IV PRN ×2 (18:25→20:51)
[2019-08-14] MEDS: FAMOTIDINE 20 MG/2 ML INJ IV SCH (22:22)
[2019-08-15] MEDS: FAMOTIDINE 20 MG/2 ML INJ IV SCH ×2 (04:15→09:49)
[2019-08-15 04:48] LABS: Basophils % (Auto) 1.3 % (0.0-1.8); Eosinophils # (Auto) 0.1 K/mm3 (0.0-0.4); Eosinophils % (Auto) 3.2 % (0.0-4.3); Hematocrit 37.3 % (30.3-42.9); Hemoglobin 12.3 gm/dl (10.1-14.3); Lymphocytes # (Auto) 1.2 K/mm3 (1.2-5.4); Lymphocytes % (Auto) 38.2 % (13.4-35.0); Mean Corpuscular HGB Conc 33 % (30-34); Mean Corpuscular Volume 89 fl (79-97); Monocytes # (Auto) 0.4 K/mm3 (0.0-0.8); Monocytes % (Auto) 11.9 % (0.0-7.3); Platelet Count 284 K/mm3 (140-440); Red Blood Count 4.18 M/mm3 (3.65-5.03); Red Cell Distribution Width 15.9 % (13.2-15.2)
[2019-08-15 05:08] LABS: BUN/Creatinine Ratio 15; Blood Urea Nitrogen 9 mg/dL (7-17); Calcium 8.7 mg/dL (8.4-10.2); Hemolysis Index 3
[2019-08-15 07:40] VITALS: BP 147/72
--- NOTE | 2019-08-15 08:07 | Discharge Summary ---
Providers - Providers Date of Admission: 08/14/19 08:46 Attending physician: GIOVANNA TELLES 08/14/19 08:47 Consult to Physician [CONS] Urgent Comment: Consulting Provider: CRISTI DIAZ Physician Instructions: Reason For Exam: left proximal uretal stone Primary care physician: DIONE COLEMAN Hospitalization Condition: Stable Hospital course: 73 YO Female with HTN, BrCA, Nephrolithiasis, Obesity presents to ED for evaluation. Pt states that she has experienced pain in her left flank over the past 3 weeks. Pt reports that the pain was initially intermittent, but has become progressively more frequent over the past 1 week. Patient was seen and evaluated in ED on July 26 and discharged home with outpatient management. Patient reports worsening symptoms with outpatient management. Pt seen and evaluated by her Urologist and found to have failed outpatient therapy. Pt instructed to seek further care at [facility]. Pt seen and evaluated in ED and found to have Urinary Obstruction with Hydronephrosis. Urology consulted in ED. Pt admitted to RUBIN unit. Pt pending surgical intervention as per Urology team. PT acknowledges Left flank pain. Pain is 10/10, constant. Pain is associated with nausea, and inability to tolerate oral diet. No prior admission for review. All listed medication reconciled at time of admission. (1) Ureteral stone with hydronephrosis Current Visit: Yes Status: Acute Plan to address problem: Urology consulted in ED, surgical intervention as per Urology team, pain control, supportive care. (2) HTN (hypertension) Current Visit: Yes Status: Acute Qualifiers: Hypertension type: essential hypertension Qualified Code(s): I10 - Essential (primary) hypertension Plan to address problem: Monitor bp q shift, continue medical management, pain control (3) Obesity Current Visit: Yes Status: Acute Qualifiers: Body mass index: BMI 33.0-33.9 Plan to address problem: Balanced diet, increased physical activity at discharge. (4) DVT prophylaxis Current Visit: Yes Status: Acute Plan to address problem: SCD to BLE while in bed, Pt ambulatory Disposition: DC-01 TO HOME OR SELFCARE Time spent for discharge: 35 mins Core Measure Documentation - Palliative Care Palliative Care/ Comfort Measures: Not Applicable - Core Measures Any of the following diagnoses?: none Exam - Constitutional Vitals: Temp Pulse Resp BP Pulse Ox 97.9 F 78 20 147/72 97 08/15/19 07:24 08/15/19 07:24 08/15/19 07:24 08/15/19 07:24 08/15/19 07:24 Plan Activity: advance as tolerated, fall precautions Diet: low fat Special Instructions: record daily weights, record daily BP diary Follow up with: DIONE COLEMAN MD [Primary Care Provider] - 7 Days
[2019-08-15] MEDS: MORPHINE 2 MG/1 ML INJ IV PRN (09:49)
--- NOTE | 2019-08-15 09:57 | Discharge Summary ---
Providers - Providers Date of Admission: 08/14/19 08:46 Date of discharge: 08/15/19 Attending physician: GIOVANNA TELLES 08/14/19 08:47 Consult to Physician [CONS] Urgent Comment: Consulting Provider: CRISTI DIAZ Physician Instructions: Reason For Exam: left proximal uretal stone 08/15/19 08:49 Physical Therapy Evaluation and Treat [CONS] Routine Comment: Reason For Exam: Weakness Primary care physician: DIONE COLEMAN Hospitalization Condition: Stable Pertinent studies: abdomen/pelvis CT Hospital course: 73 YO Female with HTN, BrCA, Nephrolithiasis, Obesity presents to ED with pain in her left flank over the past 3 weeks. Patient was seen and evaluated in ED on July 26 and discharged home with outpatient management. Patient reports worsening symptoms with outpatient management. Pt seen by her Urologist and instructed to seek further care at [facility]. Pt seen and evaluated in [facility] ED and found to have Urinary Obstruction with Hydronephrosis. Urology consulted and had cysto l rpg stent as per Urology team. Patient was then discharged home in stable condition next day with outpt f/u. Discharge diagnosis; (1) Ureteral stone with hydronephrosis - s/p cysto l rpg stent by urology (2) HTN (hypertension) (3) Obesity Disposition: -01 TO HOME OR SELFCARE Time spent for discharge: 34 minutes Core Measure Documentation - Palliative Care Palliative Care/ Comfort Measures: Not Applicable - Core Measures Any of the following diagnoses?: none Exam - Constitutional Vitals: Temp Pulse Resp BP Pulse Ox 97.9 F 78 20 147/72 97 08/15/19 07:24 08/15/19 07:24 08/15/19 07:24 08/15/19 07:24 08/15/19 07:24 General appearance: Present: no acute distress - EENT Eyes: Present: PERRL ENT: hearing intact, clear oral mucosa - Neck Neck: Present: supple, normal ROM - Respiratory Respiratory effort: normal Respiratory: bilateral: CTA - Cardiovascular Heart Sounds: Present: S1 & S2. Absent: rub, click - Extremities Extremities: pulses symmetrical, No edema Peripheral Pulses: within normal limits - Abdominal General gastrointestinal: Present: soft, non-tender, non-distended, normal bowel sounds - Integumentary Integumentary: Present: clear, warm, dry - Musculoskeletal Musculoskeletal: gait normal, strength equal bilaterally - Psychiatric Psychiatric: appropriate mood/affect, intact judgment & insight - Neurologic Neurologic: CNII-XII intact, moves all extremities Plan Activity: advance as tolerated Diet: low fat, low salt Follow up with: DIONE COLEMAN MD [Primary Care Provider] - 7 Days CRISTI DIAZ MD [Staff Physician] - 7 Days Prescriptions: oxyCODONE /ACETAMINOPHEN [Percocet 5/325] 1 tab PO Q6HR PRN #10 tablet PRN Reason: Pain
== END 2019-08-15 14:05 | disposition home or self-care (01) ==
LOC: ED 06:12 → 2B-ACE 08:46
PROVIDERS: ADMIT Internal Medicine; ATTEND Internal Medicine
DX: I10 Essential (primary) hypertension (principal); E66.9 Obesity, unspecified; Z90.710 Acquired absence of both cervix and uterus; N13.2 Hydronephrosis with renal and ureteral calculous obstruction; Z79.899 Other long term (current) drug therapy; C50.919 Malignant neoplasm of unspecified site of unspecified female breast
CPT/HCPCS: 36415; 52356; 74176; 74420; 80048; 81001; 85025; 96365; 96366; 96375; 96376; 99284; A4217; C1758; C1769; C2617; G0378; J0692; J1170; J1885; J2270; J2405; J2704; J3010; J7040; J7120; Q9967

== ENCOUNTER 2019-08-21 11:24 | Day surgery (SDC) | payer MEDICARE ==
[2019-08-21] MEDS ORDERED: LACTATED RINGERS 1,000 ML IV SCH (14:00)
[2019-08-21] MEDS ORDERED: FAMOTIDINE 20 MG/2 ML INJ IV NR (14:00)
[2019-08-21] MEDS ORDERED: MIDAZOLAM 2 MG/2 ML INJ IV NR (14:00)
[2019-08-21] MEDS ORDERED: LACTATED RINGERS 1,000 ML ONE (14:14)
[2019-08-21] MEDS ORDERED: PROPOFOL 200 MG/20 ML VIAL IV ONE (14:50)
[2019-08-21] MEDS ORDERED: fentaNYL 100 MCG/2 ML INJ ONE ×2 (14:50→16:29)
[2019-08-21] MEDS ORDERED: LIDOCAINE MPF (2%) 20 MG/1 ML VIAL 5 ML ONE (14:50)
[2019-08-21] MEDS ORDERED: ONDANSETRON 4 MG/2 ML INJ ONE (14:50)
[2019-08-21] MEDS ORDERED: PHENYLEPHRINE/NS 1,000 MCG/10 ML SYRINGE (OR USE) IV ONE (14:50)
[2019-08-21] MEDS ORDERED: dexAMETHasone 20 MG/5 ML VIAL ONE (14:50)
[2019-08-21] MEDS ORDERED: SUCCINYLCHOLINE CHLORIDE 200 MG/10 ML INJ MDV ONE (15:00)
[2019-08-21] MEDS ORDERED: MIDAZOLAM 2 MG/2 ML INJ ONE (15:04)
[2019-08-21] MEDS ORDERED: ePHEDrine SULFATE 50 MG/1 ML INJ ONE (15:42)
[2019-08-21] MEDS ORDERED: WATER FOR IRRIG STERILE 2000 ML IR ONE (15:55)
[2019-08-21] MEDS ORDERED: WATER FOR IRRIG STERILE 1,500 ML BOTTLE IR ONE (15:55)
--- NOTE | 2019-08-21 16:43 | Operative Report ---
PREOPERATIVE DIAGNOSIS: Left upper ureteral stone. POSTOPERATIVE DIAGNOSES: Left upper ureteral stone. PROCEDURE: Staged procedure with previously impacted left upper ureteral stone. Cystoscopy, left retrograde, left ureteroscopy with transposition of the stone into the renal pelvis, laser of stone in the renal pelvis, fragmentation of stone in the renal pelvis retrograde. SURGEON: Dr. Deng. ANESTHESIA: General. FINDINGS: This is a woman with a prominent stone, left upper ureter. We placed a stent and now she presents for staged procedure. All risks and implications discussed. DESCRIPTION OF PROCEDURE: The patient was brought to the operating room and placed on the operating table. Following induction of anesthesia, placed in lithotomy position, prepped and draped in usual sterile fashion. Cystoscopy revealed a stent, which was withdrawn from the meatus. A wire coiled in the kidney. Using the double lumen ureteral catheter, a second wire coiled in the kidney. Ureteroscopy showed the stone in the upper ureter. It was eventually freed and pushed into the kidney. We lasered it first at 8 whaley which did not break it, then at 10 whaley. The patient tolerated the procedure well. A double J was replaced, 7-[place] 24 cm. She tolerated the procedure well and brought to recovery in stable condition. JOB# [id number] TIANNA/DINORAH
--- NOTE | 2019-08-21 17:40 | Fluoroscopy Report ---
C-arm of the abdomen INDICATION: Left ureteral stone FINDINGS: 3 views obtained from C-arm exam in the cystoscopy suite show a left ureteral stent in plac e with apparent stone in the proximal left ureter. There is contrast injection and subsequent stent r eplacement with a larger caliber stent. Proximal tip of the stent is in the upper pole of the left ki dney. There is moderate left pyelocaliectasis. Right renal calculi may be present as well. The stone in the upper left ureter appears to have been removed. Total fluoroscopic time was 1 minute Signer Name: Ketan Jara MD Signed: 08/21/2019 5:36 PM Workstation Name: [id number]
[2019-08-21 20:33] VITALS: BP 141/60
--- NOTE | 2019-08-22 12:04 | Anesthesia Consultation ---
Anesthesia Consult and Med Hx Date of service: 08/22/19 - Airway Anesthetic Teeth Evaluation: Poor, Chipped (front) ROM Head & Neck: Adequate Mental/Hyoid Distance: Adequate Mallampati Class: Class II Intubation Access Assessment: Probably Good - Pre-Operative Health Status ASA Pre-Surgery Classification: ASA3 Proposed Anesthetic Plan: General - Pulmonary Hx Smoking: No Hx Respiratory Symptoms: No Hx Sleep Apnea: No ([place] PRE SCREEN LOW RISK.) - Cardiovascular System Hx Hypertension: Yes Hx Heart Attack/AMI: No Hx Percutaneous Transluminal Coronary Angioplasty (PTCA): No - Central Nervous System Hx Neuromuscular Disorder: No (tremor noted which patient attributes to nerves) CVA: No - Gastrointestinal Hx Gastroesophageal Reflux Disease: No - Endocrine Hx Renal Disease: Yes (hydronephrosis, nephrolithiasis; normal renal function) Hx Liver Disease: No Hx Insulin Dependent Diabetes: No Hx Non-Insulin Dependent Diabetes: No Hx Thyroid Disease: No - Hematic Hx Anemia: No - Other Systems Hx Alcohol Use: No Hx Substance Use: No Hx Cancer: Yes Hx Obesity: Yes
--- NOTE | 2019-08-22 12:05 | Anesthesia Day of Surgery ---
Anesthesia Day of Surgery - Day of Surgery Patient Examined: Yes Patient H&P Reviewed: Yes Patient is NPO: Yes
== END 2019-08-21 18:45 | disposition home or self-care (01) ==
LOC: ED 11:24 → OR 13:04
PROVIDERS: ATTEND Urology
DX: N13.2 Hydronephrosis with renal and ureteral calculous obstruction (principal); I10 Essential (primary) hypertension; M19.90 Unspecified osteoarthritis, unspecified site; E66.9 Obesity, unspecified; Z79.899 Other long term (current) drug therapy; Z68.33 Body mass index [BMI] 33.0-33.9, adult; Z90.49 Acquired absence of other specified parts of digestive tract; Z85.3 Personal history of malignant neoplasm of breast; Z90.710 Acquired absence of both cervix and uterus; Z98.890 Other specified postprocedural states; Z85.89 Personal history of malignant neoplasm of other organs and systems
CPT/HCPCS: 52356; 74420; A4217; C1758; C1769; C2617; J0330; J1100; J2250; J2370; J2405; J2704; J3010; J7120; Q9967; 96374; 96375